=== PATIENT | female | born 1940 | race Caucasian/White ===

== ENCOUNTER → 2016-11-16 12:34 | Outpatient (CLI) | payer MEDICARE, OTHER ==
[2014-05-14 07:12] VITALS: BMI 28.7
[~2016-11-16 12:34] MED LIST: ATIVAN1 MG PO; DEXILANT60 MG PO; DITROPAN X10 MG/BOTT PO; EVISTA60 MG PO; KLOR-CON M2020 MEQ PO; LASIX20 MG PO; LOPRESSOR25 MG PO; LUMIGAN 0.03 %2.5 ML EACH EYE; MACRODANTIN100 MG PO; MAXZIDE 75/501 TAB PO; MEVACOR20 MG PO; PREMARIN45 GM VG; PREVACID30 MG PO; VESICARE5 MG PO; VICODIN 5/500 T1 TAB PO; VOLTAREN100 GM TP
== END | disposition home or self-care (01) ==
LOC: D.CT 12:34
DX: C07 Malignant neoplasm of parotid gland (principal)

== ENCOUNTER → 2017-07-23 09:42 | Outpatient (CLI) | payer MEDICARE, OTHER ==
[2014-05-14 07:12] VITALS: BMI 28.7
[~2017-07-23 09:42] MED LIST changes: +FLORAJEN3 CAPS460 MG PO; +LOPERAMIDE HCL2 MG PO; +MUCINEX600 MG PO; +NORVASC5 MG PO; +PROTONIX20 MG PO; +TESSALON PERLE100 MG PO; +TUSSIONEX PENN473 ML PO
== END | disposition home or self-care (01) ==
LOC: D.US 07-22 10:30
DX: R22.41 Localized swelling, mass and lump, right lower limb (principal)

== ENCOUNTER 2017-08-21 18:22 | Inpatient (IN) | payer MEDICARE, OTHER ==
[~2017-08-21] VITALS: Ht 162.6 cm; Wt 73.5 kg
--- NOTE | ~2017-08-21 | EC ---
PATIENT:JB TAVARES DATE OF SERVICE: 08/21/17 SEX: F MEDICAL RECORD: [id number] DATE OF : 40 LOCATION:[facility] AGE OF PATIENT: 77 ADMISSION DATE: 08/21/17 REFERRING PHYSICIAN: INTERPRETING PHYSICIAN: MICHAEL BLUE MD ECHOCARDIOGRAM REPORT ECHO CHARGES 4 ECHO COMPLETE CLINICAL DIAGNOSIS: ASSESS FOR VEGATATIONS, FEVER ECHOCARDIOGRAPHIC MEASUREMENTS (adult normal given) AC root (d.<3.7cm) 3.3 cm LV Septum d (<1.2 cm> 1.4 cm Valve Excursion 1.8 cm LV Septum (systole) 1.6 cm Left Atria (s.<4.0cm> 3.4 cm LVPW d(<1.2cm) 1.4 cm RV (d.<2.3cm) 4.2 cm LVPW (sytole) 1.7 cm LV diastole(<5.6CM) 4.4 cm MV E-F(>70mm/sec) cm LV systole 2.9 cm LVOT Diameter 1.5 cm MV exc.(>10mm) 1.3 cm Est.ejection fraction (50-75%) % Pericardial Effusion N DOPPLER: LVIT cm/sec A 110 cm/sec E 116 cm/sec LA cm/sec RVSP 29 mmHg LVOT 134 cm/sec AOP1/2T m/s Asc. Ao 175 cm/sec RVOT cm/sec RA cm/sec PA 147 cm/sec AV Gradient Peak 12.27mmHg AV Mean 6.93 mmHg AV Area 1.3 cm MV Gradient Peak 5.69 mmHg MV Mean 3.09 mmHg MV Area cm COMMENTS: Master [place]: 2 [employer] [employer] Supervisor Blasting: 3 Dr. Jernigan TAPE# PACS DATE OF SERVICE: 08/22/2017 Adequate 2D echo, color flow and spectral Doppler, and M-mode. Mild LVH. LV internal dimension is normal. Wall motion is normal. EF greater than 50% to 55%. Aortic valve is tricuspid, no stenosis by Doppler interrogation. The left atrium is normal at 3.4 cm. Mitral valve shows no prolapse. Trace MR. Right-sided chamber is grossly normal. Trace TR. TRANSINT:[id number] Voice Confirmation ID: [id number] DOCUMENT ID: [id number] 08/26/2017 Edited to correct date of service, dmm. ECHOCARDIOGRAM REPORT [id number] JB TAVARES,MICHAEL Lee MD at 0823 CC: [id number] DICTATION DATE: 08/23/17 1047 INFORMATION MANAGEMENT OFFICER: 08/23/17 1302 DIS IN 08/26/17 [place] [id number] [place] [id number]
[~2017-08-21 18:22] MED LIST changes: -FLORAJEN3 CAPS460 MG PO; -LOPERAMIDE HCL2 MG PO; -MUCINEX600 MG PO; -NORVASC5 MG PO; -PROTONIX20 MG PO; -TESSALON PERLE100 MG PO; -TUSSIONEX PENN473 ML PO
[2017-08-21] MEDS ORDERED: PROTONIX20 MG PO (18:52)
[2017-08-21] MEDS ORDERED: NORVASC5 MG PO (18:53)
[2017-08-21 22:19] LABS: APPEARANCE CLEAR (CLEAR); BILIRUBIN NEGATIVE (NEGATIVE); COLOR YELLOW (YELLOW); GLUCOSE NEGATIVE (NEGATIVE); KETONE NEGATIVE (NEGATIVE); NITRITE NEGATIVE (NEGATIVE); PROTEIN NEGATIVE (NEGATIVE); UROBILINOGEN NORMAL (NORMAL)
[2017-08-21 22:20] VITALS: BP 128/55
[2017-08-21 22:21] LABS: BACTERIA FEW /hpf (NONE SEEN); WHITE CELLS - URINE 0-5 /hpf (0-5)
[2017-08-21 23:43] VITALS: BP 144/68; BMI 27.8
[2017-08-22 01:15] VITALS: BP 125/57
[2017-08-22 05:32] LABS: BASOPHILS 0.4 % (0-2); EOSINOPHILS 0.5 % (0-7); HEMATOCRIT 31.9 % (36.0-48.0); HEMOGLOBIN 10.7 g/dL (12-16); IMMATURE GRANULOCYTES 4.1 % (0-5); LYMPHOCYTES 3.8 % (15-50); MCH 30.9 pg (26.0-34.0); MCHC 33.5 g/dL (31.0-37.0); MCV 92.2 fL (80.0-100.0); MEAN PLATELET VOLUME 10.4 fL (7.4-10.4); MONOCYTES 8.2 % (2-11); PLATELET COUNT 168 10x3/uL (130-400); RBC 3.46 10x6/uL (4.00-5.40); RDW 15.8 % (11.5-14.5); WBC 12.4 10x3/uL (4.8-10.8)
[2017-08-22 05:50] LABS: ANION GAP 14.2 mmol/L (8-16); CALCIUM 7.6 mg/dL (8.5-10.1); CARBON DIOXIDE 23.1 mmol/L (21.0-32.0); CREATININE - SERUM 0.8 mg/dL (0.6-1.3); POTASSIUM - SERUM 3.3 mmol/L (3.5-5.1)
[2017-08-22 12:00] VITALS: BP 130/65
[2017-08-22 16:15] VITALS: BP 143/62
[2017-08-22 22:26] VITALS: BP 111/52
[2017-08-23 05:18] LABS: BASOPHILS 0.5 % (0-2); EOSINOPHILS 0.5 % (0-7); HEMATOCRIT 29.5 % (36.0-48.0); HEMOGLOBIN 9.9 g/dL (12-16); IMMATURE GRANULOCYTES 3.5 % (0-5); LYMPHOCYTES 5.8 % (15-50); MCH 30.9 pg (26.0-34.0); MCHC 33.6 g/dL (31.0-37.0); MCV 92.2 fL (80.0-100.0); MEAN PLATELET VOLUME 9.7 fL (7.4-10.4); MONOCYTES 11.7 % (2-11); PLATELET COUNT 141 10x3/uL (130-400); RDW 15.8 % (11.5-14.5)
[2017-08-23 05:19] LABS: CALC OSMOLALITY 282 mosm/kg (275-300); CALCIUM 7.7 mg/dL (8.5-10.1); CARBON DIOXIDE 23.6 mmol/L (21.0-32.0); CHLORIDE - SERUM 110 mmol/L (98-107); CREATININE - SERUM 0.7 mg/dL (0.6-1.3); GLUCOSE 99 mg/dL (74-106); POTASSIUM - SERUM 3.3 mmol/L (3.5-5.1); SODIUM 143 mmol/L (136-145); UREA NITROGEN 6 mg/dL (7-18); WBC 7.8 10x3/uL (4.8-10.8); eGFR NON AFRICAN AMERICAN 86 mL/min (90-120)
[2017-08-23 08:37] VITALS: BP 113/58
[2017-08-23 11:47] VITALS: BP 126/56
[2017-08-23 13:48] VITALS: Ht 162.6 cm; Wt 73.5 kg
[2017-08-23 15:50] VITALS: BP 140/67
[2017-08-23 22:21] VITALS: BP 109/48
[2017-08-24 00:56] VITALS: BP 119/70
[2017-08-24 05:02] LABS: BASOPHILS 0.6 % (0-2); EOSINOPHILS 0.3 % (0-7); HEMATOCRIT 29.7 % (36.0-48.0); HEMOGLOBIN 9.9 g/dL (12-16); IMMATURE GRANULOCYTES 1.4 % (0-5); MCH 30.7 pg (26.0-34.0); MCHC 33.3 g/dL (31.0-37.0); MEAN PLATELET VOLUME 10.1 fL (7.4-10.4); MONOCYTES 6.2 % (2-11); NEUTROPHILS 86.5 % (40-80); PLATELET COUNT 151 10x3/uL (130-400); RBC 3.23 10x6/uL (4.00-5.40); RDW 15.6 % (11.5-14.5)
[2017-08-24 05:20] VITALS: BP 118/66
[2017-08-24 05:22] LABS: CALC OSMOLALITY 276 mosm/kg (275-300); CALCIUM 7.5 mg/dL (8.5-10.1); CARBON DIOXIDE 23.8 mmol/L (21.0-32.0); CHLORIDE - SERUM 107 mmol/L (98-107); CREATININE - SERUM 0.7 mg/dL (0.6-1.3); GLUCOSE 107 mg/dL (74-106); POTASSIUM - SERUM 3.1 mmol/L (3.5-5.1); SODIUM 140 mmol/L (136-145); UREA NITROGEN 6 mg/dL (7-18); eGFR NON AFRICAN AMERICAN 86 mL/min (90-120)
[2017-08-24 08:59] VITALS: BP 105/60
[2017-08-24 17:13] VITALS: BP 141/70
[2017-08-24 22:12] VITALS: BP 114/64
[2017-08-25 01:36] VITALS: BP 116/64
[2017-08-25 04:46] VITALS: BP 131/54
[2017-08-25 06:20] LABS: BASOPHILS 1.2 % (0-2); EOSINOPHILS 0.4 % (0-7); HEMATOCRIT 27.8 % (36.0-48.0); HEMOGLOBIN 9.2 g/dL (12-16); IMMATURE GRANULOCYTES 1.4 % (0-5); LYMPHOCYTES 8.8 % (15-50); MCH 30.4 pg (26.0-34.0); MCHC 33.1 g/dL (31.0-37.0); MCV 91.7 fL (80.0-100.0); MEAN PLATELET VOLUME 9.7 fL (7.4-10.4); MONOCYTES 9.2 % (2-11); PLATELET COUNT 149 10x3/uL (130-400); RBC 3.03 10x6/uL (4.00-5.40); RDW 15.8 % (11.5-14.5)
[2017-08-25 06:40] LABS: CALC OSMOLALITY 273 mosm/kg (275-300); CALCIUM 7.3 mg/dL (8.5-10.1); CARBON DIOXIDE 22.6 mmol/L (21.0-32.0); CHLORIDE - SERUM 107 mmol/L (98-107); CREATININE - SERUM 0.6 mg/dL (0.6-1.3); GLUCOSE 98 mg/dL (74-106); POTASSIUM - SERUM 3.3 mmol/L (3.5-5.1); SODIUM 138 mmol/L (136-145); UREA NITROGEN 7 mg/dL (7-18); eGFR NON AFRICAN AMERICAN > 90 mL/min (90-120)
[2017-08-25 10:33] VITALS: BP 125/64
[2017-08-25 11:35] VITALS: BP 108/51
[2017-08-25 16:18] VITALS: BP 138/64
[2017-08-25 23:49] VITALS: BP 125/58
[2017-08-26 04:56] LABS: BASOPHILS 1.3 % (0-2); EOSINOPHILS 0.4 % (0-7); HEMATOCRIT 27.4 % (36.0-48.0); HEMOGLOBIN 9.1 g/dL (12-16); IMMATURE GRANULOCYTES 0.6 % (0-5); LYMPHOCYTES 12.2 % (15-50); MCH 30.5 pg (26.0-34.0); MCHC 33.2 g/dL (31.0-37.0); MCV 91.9 fL (80.0-100.0); MEAN PLATELET VOLUME 9.4 fL (7.4-10.4); MONOCYTES 7.1 % (2-11); NEUTROPHILS 78.4 % (40-80); PLATELET COUNT 165 10x3/uL (130-400); RBC 2.98 10x6/uL (4.00-5.40); RDW 15.8 % (11.5-14.5); WBC 4.8 10x3/uL (4.8-10.8)
[2017-08-26 05:06] LABS: CALC OSMOLALITY 273 mosm/kg (275-300); CALCIUM 7.4 mg/dL (8.5-10.1); CARBON DIOXIDE 24.1 mmol/L (21.0-32.0); CHLORIDE - SERUM 106 mmol/L (98-107); CREATININE - SERUM 0.6 mg/dL (0.6-1.3); GLUCOSE 92 mg/dL (74-106); SODIUM 138 mmol/L (136-145); UREA NITROGEN 6 mg/dL (7-18); eGFR NON AFRICAN AMERICAN > 90 mL/min (90-120)
[2017-08-26 05:09] LABS: POTASSIUM - SERUM 3.4 mmol/L (3.5-5.1)
[2017-08-26 05:25] VITALS: BP 136/67
[2017-08-26 09:27] VITALS: BP 135/63
[2017-08-26 11:34] VITALS: BP 129/60
[2017-08-26 12:26] VITALS: BP 129/60
[2017-08-26] MEDS ORDERED: MUCINEX600 MG PO (13:57)
[2017-08-26] MEDS ORDERED: TESSALON PERLE100 MG PO (13:57)
[2017-08-26] MEDS ORDERED: FLORAJEN3 CAPS460 MG PO (13:58)
[2017-08-26] MEDS ORDERED: TUSSIONEX PENN473 ML PO (13:59)
[2017-08-26] MEDS ORDERED: LOPERAMIDE HCL2 MG PO (13:59)
[2017-08-26 15:42] VITALS: BP 118/62
[2017-09-01 18:10] LABS: B PARAPERTUSSIS DNA Negative (Negative); B PERTUSSIS DNA Negative (Negative)
== END 2017-08-26 16:15 | disposition home or self-care (01) | DRG 864 ==
LOC: D.MS 18:22
PROVIDERS: Internal Medicine Nephrology; Student in an Organized Health Care Education/Training Program
DX: R50.9 Fever, unspecified (principal); C50.919 Malignant neoplasm of unspecified site of unspecified female breast; E87.6 Hypokalemia; I10 Essential (primary) hypertension; K31.84 Gastroparesis; D64.81 Anemia due to antineoplastic chemotherapy; T45.1X5A Adverse effect of antineoplastic and immunosuppressive drugs, initial encounter; R19.7 Diarrhea, unspecified; N20.0 Calculus of kidney; L27.0 Generalized skin eruption due to drugs and medicaments taken internally; R05 Cough; E86.0 Dehydration

== ENCOUNTER → 2018-09-23 11:23 | Outpatient (CLI) | payer MEDICARE, OTHER ==
[2017-08-23 13:48] VITALS: BMI 27.8
[~2018-09-23 11:23] MED LIST changes: +FLORAJEN3 CAPS460 MG PO; +LOPERAMIDE HCL2 MG PO; +MUCINEX600 MG PO; +NORVASC5 MG PO; +PROTONIX20 MG PO; +TESSALON PERLE100 MG PO; +TUSSIONEX PENN473 ML PO
== END | disposition home or self-care (01) ==
LOC: D.US 11:23
PROVIDERS: ATTEND Family Medicine
DX: R60.0 Localized edema (principal)

== ENCOUNTER 2020-11-21 05:06 | Day surgery (SDC) | payer MEDICARE, OTHER ==
[~2020-11-21] VITALS: Ht 162.6 cm; Wt 77.7 kg
[~2020-11-21 05:06] MED LIST changes: +CELEXA20 MG PO; +CENTRUM SILVER1 EAC3 PO; +FUROSEMIDE40 MG PO
[2020-11-21 05:38] LABS: BASOPHILS 1.4 % (0-2); EOSINOPHILS 7.1 % (0-7); HEMATOCRIT 40.5 % (36.0-48.0); HEMOGLOBIN 13.5 g/dL (12-16); LYMPHOCYTE ABS# 1.38 10x3/uL (1.18-3.74); LYMPHOCYTES 32.6 % (15-50); MCH 29.7 pg (26.0-34.0); MCHC 33.3 g/dL (31.0-37.0); MCV 89.2 fL (80.0-100.0); MEAN PLATELET VOLUME 9.3 fL (7.4-10.4); NEUTROPHIL ABS# 2.11 10x3/uL (1.56-6.13); NEUTROPHILS 49.9 % (40-80); PLATELET COUNT 193 10x3/uL (130-400); RBC 4.54 10x6/uL (4.00-5.40); RDW 13.2 % (11.5-14.5); WBC 4.2 10x3/uL (4.8-10.8)
[2020-11-21 06:08] LABS: ANION GAP 10.8 mmol/L (8-16); CARBON DIOXIDE 30.3 mmol/L (21.0-32.0); CREATININE - SERUM 0.8 mg/dL (0.6-1.3); POTASSIUM - SERUM 4.1 mmol/L (3.5-5.1)
[2020-11-21 06:28] VITALS: Ht 162.6 cm; Wt 77.7 kg
--- NOTE | 2020-11-21 10:03 | NUR ---
DC INSTRUCTIONS GIVEN TO PT/SPOUSE. STATES UNDERSTANDING. DC'D IV CATH FULLY INTACT. PT VOIDED. PT LEFT UNIT VIA WC AT 1002
== END 2020-11-21 10:02 | disposition home or self-care (01) ==
LOC: D.OPS 05:06
PROVIDERS: Anesthesiology; ATTEND Podiatrist Foot & Ankle Surgery
DX: M79.671 Pain in right foot (principal); S93.104A Unspecified dislocation of right toe(s), initial encounter; X58.XXXA Exposure to other specified factors, initial encounter; I10 Essential (primary) hypertension; I38 Endocarditis, valve unspecified